=== PATIENT | male | born 1945 | race Caucasian/White ===

== ENCOUNTER 2016-11-01 11:46 | Emergency (ER) | payer OTHER ==
[~2016-11-01] VITALS: Ht 188 cm; Wt 130.7 kg
[2016-11-01 11:49] VITALS: TEMP 36.5; Ht 188 cm; Wt 130.7 kg
--- NOTE | 2016-11-01 12:23 | DIAGNOSTIC IMAGING REPORT ---
RIGHT HAND MIN 3 VIEWS ROUTINE HISTORY: 71 years-old Male Open FX Right COMPARISON: None available TECHNIQUE: 3 views of the right hand. FINDINGS: There is an acute comminuted displaced and angulated fracture of the distal diaphyseal portion second metacarpal. There is 5 mm lateral displacement with associated apex dorsal angulation of approximately 30 degrees. Considerable amount of associated soft tissue swelling is present. No additional acute fracture or dislocation is identified. 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 No definite radiopaque foreign body. IMPRESSION: 1. Acute mildly displaced and angulated fracture of the distal diaphyseal second metacarpal with moderate associated soft tissue swelling. 2. No opaque foreign body. 3. Multifocal degenerative changes as above. The above report was generated using voice recognition software. It may contain grammatical, syntax or spelling errors. Electronically signed by: Xu Moore M.D. 11/01/2016 12:21 PM Dictated Date/Time: 11/01/2016 12:19 PM
[2016-11-01] MEDS ORDERED: CEFAZOLIN SOD 1000MG/55 ML D5W IV STA (12:49)
[2016-11-01] MEDS ORDERED: METO50TA16 PO (12:50)
[2016-11-01] MEDS ORDERED: DOXA2TAB PO (12:50)
[2016-11-01] MEDS ORDERED: RIVA1TAB4 PO (12:50)
[2016-11-01] MEDS ORDERED: CLON1TAB3 PO (12:50)
[2016-11-01] MEDS ORDERED: LISI40TA PO (12:50)
[2016-11-01] MEDS ORDERED: XYLOCAINE 1%/SOD BICARB 20 ML VIAL INFIL ONE (13:00)
[2016-11-01] MEDS ORDERED: DIPHTHERIA/TETANUS/PERTUSSIS 0.5 ML SYR/VIAL IM. ONE (13:00)
[2016-11-01] MEDS ORDERED: ONDA4TAB46 PO (14:27)
[2016-11-01] MEDS ORDERED: CEPH500C PO (14:27)
[2016-11-01] MEDS ORDERED: HYDR-5688 PO (14:27)
[2016-11-01 14:34] VITALS: BP 190/82; PULSE 68; O2SAT 97
--- NOTE | 2016-11-01 18:20 | EMERGENCY ROOM VISIT NOTE ---
ED Visit Note First contact with patient: 12:42 Chief Complaint: Injured my right hand. History of Present Illness: Mr. Wolfe is a 71-year-old white male who ambulates into the ED accompanied by female friend complaining of posterior aspect of the right hand over the second metacarpal. Patient reports less than an hour ago he was putting a block under his pickup truck using a nadya. The nadya slipped and the truck came down and crushed his right hand. After removing the truck off his hand he did note there was bleeding over the posterior aspect of the hand and he noted moderate swelling. Currently he complains of a pressure and throbbing pain over the posterior aspect of the right hand. The prominence is located over the distal aspect of the second metacarpal. He rates his discomfort 5/10. His pain is nonradiating. His pain worsens with palpation, movement of the second MCP joint. He has not identified any alleviating factors related to the pain. He has not taken medications for pain prior to arrival at the hospital. He is [id number]-[id number] and denies any previous significant injuries or surgeries to the right hand. He denies any wrist pain, other hand pain, finger pain, finger weakness/numbness/tingling. Review of Systems: As noted above in history of present illness. Past Medical History: Hypertension. Current Medications: Xarelto, lisinopril, Cardura, Lopressor and Klonopin. Allergies to Medications: Patient denies. Social History: Patient is currently retired; he feels safe in his home environment; he denies tobacco use. Physical Examination: Vital Signs: Date Time Temp Pulse Resp B/P (MAP) Pulse Ox O2 Delivery O2 Flow Rate FiO2 11/01/16 14:34 68 20 190/82 97 Room Air 11/01/16 13:48 66 20 190/104 98 Room Air 11/01/16 11:49 36.5 62 18 205/96 97 Room Air GENERAL: 71-year-old male in mild distress due to pain, nontoxic-appearing, afebrile and hemodynamically stable. NEUROLOGICAL: Awake, alert and oriented to person, place and time. Answering questions appropriately and following commands. Normal gait. Good hand eye coordination. No focal motor sensory deficits. SKIN: Warm, dry and pink. Right Hand: 2.2 cm full-thickness laceration over the posterior hand over the distal aspect of the second metacarpal with moderate swelling. No active bleeding. RIGHT UPPER EXTREMITY: Soft tissue injury as noted above in SKIN. No gross bony deformity but moderate swelling over the posterior hand. No tenderness in the elbow, forearm or wrist. Moderate tenderness over the distal aspect of the second metacarpal with questionable bony crepitus and deformity. No tenderness throughout the rest of the hand or fingers. The fingers are warm and pink and capillary refill is brisk. Patient was able to wiggle his fingers and distinguish light sensations. ED Course: Patient is assessed as noted above. Patient's medication list was reviewed. Patient was offered pain medication and refused. Right Hand X-Rays: Were read by myself and the radiologist showing an acute mildly displaced and angulated comminuted fracture of the distal aspect of the distal second metacarpal. Moderately associated soft tissue swelling and not to multifocal degenerative changes. An IV lock was initiated and patient received 1 g of Ancef IV for antibiotic coverage and he was given an Adacel booster IM. Patient's case was consulted with Dr. Gonzalez, orthopedic hand specialist; he requested that the wound be thoroughly cleansed, loosely approximated, splinted and he would see the patient in follow-up tomorrow morning at 8 AM at his office. Wound Repair: Complexity: Basic Verbal consent was obtained after the risks and benefits were explained. The skin was prepped with betadine and a sterile field set. Wound edges of the wound was anesthetized with 3.2 ml buffered 1% lidocaine. The wound was explored for foreign bodies and none found. Copious irrigation was performed using sterile saline. With direct pressure the bleeding subsided. Debridement was not performed. The wound edges were approximated using 4-0 Ethilon with 2 simple interrupted sutures. Hemostasis and excellent approximation was achieved. Antibacterial ointment and a sterile dressing applied. Ortho-Glass splint was placed. No complications and the patient tolerated the procedure well. Patient was educated about today's findings and instructed on his treatment plan ; he verbalizes understanding and agreement with this plan. Clinical Impression: Open comminuted and displaced fracture of the distal aspect of the right second metacarpal. Disposition: Patient discharged home in stable condition accompanied by female friends; prior to departure he was reassessed and subjectively reported he was feeling better and rated his discomfort 2/10. Plan: Comfort measures, wound care and signs of infection were discussed with the patient. He was prescribed [place] for pain control and Zofran for nausea related to narcotic use; he was given appropriate narcotic precautions and his name was checked in the state database and no red flags were noted. Patient was prescribed Keflex for antibiotic coverage. Patient was encouraged to follow-up with hand specialist tomorrow morning at 8 AM. Patient was encouraged return ED before then for worsening/uncontrolled pain, any fevers, hand the hand weakness/numbness/tingling or any new/concerning symptoms.
== END 2016-11-01 14:35 | disposition home or self-care (01) ==
LOC: C.EDB 11:49 → C.EDD 14:35
DX: S62.390B Other fracture of second metacarpal bone, right hand, initial encounter for open fracture (principal); W23.1XXA Caught, crushed, jammed, or pinched between stationary objects, initial encounter; Y92.009 Unspecified place in unspecified non-institutional (private) residence as the place of occurrence of the external cause; I10 Essential (primary) hypertension; Z79.01 Long term (current) use of anticoagulants; Z79.899 Other long term (current) drug therapy

== ENCOUNTER → 2016-11-02 | Outpatient (CLI) | payer OTHER ==
[~2016-11-02] MED LIST: CEPH500C PO; CLON1TAB3 PO; DOXA2TAB PO; HYDR-5688 PO; LISI40TA PO; METO50TA16 PO; ONDA4TAB46 PO; RIVA1TAB4 PO
== END | disposition home or self-care (01) ==
LOC: C.CPL 10:48
PROVIDERS: ATTEND Orthopaedic Surgery
DX: Z01.810 Encounter for preprocedural cardiovascular examination (principal)

== ENCOUNTER 2024-08-27 11:22 | Observation (INO) ==
--- NOTE | 2024-08-27 11:58 | Emergency Department Note ---
Impression & Plan Cellulitis, Infection ED Provider Note CHIEF COMPLAINT: Leg swelling HISTORY OF PRESENTING ILLNESS: The patient is a pleasant 79-year-old male who arrives to the emergency department for evaluation of right lower extremity swelling and pain. Patient states he had a total knee replacement performed by Dr. Hoang on 08/19. He states since that time he has noted increasing swelling, with warmth and redness to the right lower extremity. He reports the area is painful even to slight touch. He states he is unsure if he had a fever, however noted rigors at home. He reports he is currently taking a daily baby aspirin due to his past medical history of 3 cardiac stents. He reports some shortness of breath, and states no past medical history of congestive heart failure. REVIEW OF SYSTEMS: See HPI for pertinent positives and pertinent negatives. ALLERGIES: See below MEDICATIONS: See below PAST MEDICAL HISTORY: See below PHYSICAL EXAM: VITALS: Vitals are noted on the nurse's note and reviewed by myself. Vital signs stable. GENERAL: 79-year-old male, in no acute distress, nondiaphoretic, well-developed well-nourished. SKIN: Right lower extremity 4+ pitting edema, with circumferential cellulitis noted from the upper tib-fib extending to the ankle. No drainage from incision site noted. HEAD: Normocephalic atraumatic. NECK: Supple without nuchal rigidity. No JVD. HEART: Regular rate and rhythm without murmurs gallops or rubs. LUNGS: Clear to auscultation bilaterally without wheezes, rales or rhonchi. No retractions or accessory muscle use. ABDOMEN: Positive bowel sounds x 4. Soft, nontender, without masses or organomegaly. Hinojosa sign negative. No guarding or rebound tenderness. MUSCULOSKELETAL: Right lower extremity pitting edema. Circumferential cellulitis, no weeping. DP pulse intact. Full ROM, right ankle. Sensation intact to dull and sharp. NEURO: Patient was alert and oriented to person place and time. No focal neurological deficits. DIFFERENTIAL DIAGNOSIS: Cellulitis, abscess, MRSA infection, DVT, necrotizing fasciitis, dermatitis, drug eruption, allergic reaction, CHF, infections, musculoskeletal, as well as other pathologies. ED COURSE AND MEDICAL DECISION MAKING: HISTORY FROM INDEPENDENT HISTORIAN: Family at bedside serving as secondary historian. MEDICATIONS GIVEN: Vancomycin 2750 mg, ceftriaxone 2000 mg, morphine 4 mg INTERPRETATION OF LABS: I interpreted the labs with full lab results as below in the lab section of this note. Pertinent lab results discussed in the MDM section below. INTERPRETATION OF IMAGING: Imaging studies were interpreted by myself and read by radiology as per the imaging section of this note. CONSULTATIONS: Case discussed with Dr. Hoang, from orthopedics. MDM SUMMARY: The patient is a pleasant, 79-year-old male who arrives to the emergency department for evaluation of the above-stated complaint. A saline lock was established, CBC, CMP, lactate, procalcitonin, blood cultures were obtained. CBC shows no leukocytosis, stable anemia. CMP shows no concerning findings. Lactate 2.3, with repeat 1.8. Chest x-ray imaging obtained per my interpretation shows no acute cardiopulmonary findings. Knee x-ray obtained which per my interpretation shows no complication of the hardware, no concerning findings. Venous Doppler ultrasound to rule out DVT was obtained which was negative. Based on the patient's elevated lactic acid, and physical examination findings I do believe the patient requires admission to the hospital for cellulitis, with potential systemic infection. He was provided IV vancomycin, and IV Rocephin. I spoke with Dr. Hoang from orthopedics, who will consult. The patient will be admitted to the [facility] hospitalist group for further patient workup and treatment. Please refer to Dr. Soria's documentation. DIAGNOSIS: Cellulitis, infection The patient's case was discussed with Dr. Duenas, who agreed with my evaluation and treatment plan. The chart was completed utilizing [employer] Speech voice recognition software. Grammatical errors, random word insertions, pronoun errors, and incomplete sentences are an occasional consequence of this system due to software limitations, ambient noise, and hardware issues. Any formal questions or concerns about the content, text, or information contained within the body of this dictation should be directly addressed to the provider for clarification. Past Med/Surg History Problem List (Updated 08/27/24 @ 15:49 by JEREMY Parikh) Infection (Acute) Cellulitis (Acute) Status post total right knee replacement Encounter for pre-operative examination Lumbar spondylosis Degenerative arthritis of knee, bilateral Medical History CAD (coronary artery disease) (~2021) s/p 3 stents Hx of lymphoma (2020) had chemo-follows Onc in [facility] Gennaro Toribio at [facility]- last seen 07/21/24 Irregular heart rhythm approx. 1 year ago, went to [place] [facility], states was having fast heart beat followed by "no heart beat"- was not admitted and "it went away on it's own"- states no longer has this problem HLD (hyperlipidemia) GERD (gastroesophageal reflux disease) controlled, stable per pt Lumbar spondylosis Hypertension controlled, stable per pt Surgical History History of wisdom tooth extraction (2019) 4 wisdom teeth Hx of arthroscopy of right knee (2004) torn meniscus Hx of heart artery stent 2021- stents- [facility]-- no NH- follows with cardio dr. gonzalez in [place] (last seen 07/21/24- had EKG) Hx of cardiac catheterization (2021) 2021- stents- [facility]-- no NH- follows with cardio dr. 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 Beliefs That Will Affect Care: None Current Living Situation: Spouse Feels Safe at Home: Yes Assistive Devices: Walker Allergies Allergies Allergy/AdvReac Type Severity Reaction Status Date / Time No Known Allergies Allergy Verified 08/27/24 14:09 Home Meds Home Medications Medication Instructions Recorded Confirmed atorvastatin 40 mg tablet (Lipitor) 40 mg PO HS 07/07/24 08/27/24 cholecalciferol (vitamin D3) 125 125 mcg PO QAM 07/07/24 08/27/24 mcg (5,000 unit) capsule doxazosin 2 mg tablet (Cardura) 2 mg PO HS 07/07/24 08/27/24 ijdamdtt-mmn- 250 mg-dha 90 1 cap PO QAM 07/07/24 08/27/24 mg-epa 160 ab-jcjp-nqva-zeax capsule (Ocuvite Adult 50 Plus) olflgdno-lt-ymrdr 300 mcg-K 60 1 tab PO QAM 07/07/24 08/27/24 mcg-lycop 600 mcg-lutein 300 mcg tablet (Centrum Silver Men) pantoprazole 20 mg tablet,delayed 20 mg PO QAM 07/07/24 08/27/24 release (Protonix) lisinopril 40 mg tablet 40 mg PO QAM 07/23/24 08/27/24 metoprolol tartrate 50 mg tablet 50 mg PO BID 07/23/24 08/27/24 ondansetron 4 mg disintegrating 4 mg PO Q8H PRN nausea 08/27/24 08/27/24 tablet Previous Rx's Medication Instructions Recorded acetaminophen 500 mg tablet 1,000 mg (2 x 500 mg) PO TID pain 08/17/24 (Tylenol Extra Strength) 30 days #180 tabs aspirin 81 mg tablet,delayed 81 mg PO BID 45 days #90 tabs 08/17/24 release (Bernadette Low Dose Aspirin) oxycodone 5 mg tablet 5 - 10 mg (1 - 2 x 5 mg) PO Q8H 08/17/24 PRN pain #40 tabs sennosides 8.6 mg tablet (Senokot) 8.6 mg PO BID prevent constipation 08/17/24 14 days #28 tabs Results & Data (ED) Vital Signs Vital Signs - 24 hr 08/27/24 11:36 08/27/24 11:59 08/27/24 13:35 Temperature 36.6 C Temperature Source Oral Pulse Rate 83 Pulse Rate [Right Finger] 85 80 Pulse Rhythm [Right Finger] Regular Regular Pulse Strength [Right Finger] Normal Normal Respiratory Rate 18 18 18 Respiratory Effort / Characteristics Non-Labored Spontaneous Non-Labored Non-Labored Respiratory Depth Normal Normal Normal Respiratory Pattern Regular Regular Blood Pressure 149/68 H Blood Pressure [Right Arm] 128/70 141/92 H Blood Pressure Mean 95 Blood Pressure Mean [Right Arm] 89 108 Blood Pressure Position [Right Arm] Lying Lying Pulse Oximetry 97 98 97 Oxygen Delivery Method Room Air Room Air Room Air Sepsis Recent Fever Within 48 Hours No Sepsis New/Unexplained Change in Mental Status No Sepsis Action Taken by Nursing No Action Required 08/27/24 13:57 08/27/24 15:00 Temperature 36.6 C Temperature Source Oral Pulse Rate Pulse Rate [Right Finger] 90 Pulse Rhythm [Right Finger] Pulse Strength [Right Finger] Respiratory Rate 18 Respiratory Effort / Characteristics Respiratory Depth Respiratory Pattern Blood Pressure Blood Pressure [Right Arm] 152/106 H Blood Pressure Mean Blood Pressure Mean [Right Arm] 121 Blood Pressure Position [Right Arm] Pulse Oximetry 96 Oxygen Delivery Method Room Air Sepsis Recent Fever Within 48 Hours Sepsis New/Unexplained Change in Mental Status Sepsis Action Taken by Long-Term Medications Current Medication List: was personally reviewed by me Laboratory Data Attestation: I reviewed the patient's lab results. 08/27/24 12:09 08/27/24 12:09 Lab Results 08/27/24 08/27/24 Range/Units 12:09 14:11 WBC 10.28 (4.8-10.8) K/ul RBC 3.28 L (4.70-6.10) M/uL Hgb 10.1 L (14.0-18.0) g/dl Hct 31.2 L (42.0-52.0) % MCV 95.1 (80.0-100.0) fL MCH 30.8 (25.0-34.0) pg MCHC 32.4 (32.0-36.0) g/dL RDW Std Deviation 47.1 H (36.4-46.3) fL RDW Coeff of Shanita 13.7 (11.5-14.5) % Plt Count 230 (130-400) K/uL MPV 9.3 L (9.4-12.4) fL Immature Gran % (Auto) 0.7 % Neut % (Auto) 79.6 % Lymph % (Auto) 8.2 % [place] % (Auto) 10.9 % Eos % (Auto) 0.2 % Baso % (Auto) 0.4 % Neut # (Auto) 8.19 H (1.40-6.50) K/uL Lymph # (Auto) 0.84 L (1.20-3.40) K/uL [place] # (Auto) 1.12 H (0.11-0.59) K/uL Eos # (Auto) 0.02 (0.00-0.50) K/uL Baso # (Auto) 0.04 (0.00-0.20) K/uL Immature Gran # (Auto) 0.07 (0.01-0.20) K/uL Sodium 141 (136-145) mmol/L Potassium 4.1 (3.5-5.1) mmol/L Chloride 108 H (98-107) mmol/L Carbon Dioxide 25 (21-32) mmol/L Anion Gap 8 (3-11) BUN 27 H (6-23) mg/dl Creatinine 1.08 (0.6-1.4) mg/dl Est Cr Clr Drug Dosing Not Reportable eGFR 70.24 BUN/Creatinine Ratio 25.0 H (10-20) Glucose 111 H (70-99(Fasting)) mg/dl Lactate 2.3 H* 1.8 (0.4-2.0) mmol/L Calcium 8.9 (8.6-10.3) mg/dl Total Bilirubin 1.8 H (0.2-1.0) mg/dl AST 24 (13-39) U/L ALT 34 (7-52) U/L Alkaline Phosphatase 56 (34-104) U/L Total Protein 6.5 (6.0-8.3) gm/dl Albumin 3.8 (3.4-5.0) gm/dl Globulin 2.7 (2.5-4.0) gm/dl Albumin/Globulin Ratio 1.4 (0.9-2) Procalcitonin 0.09 (0-0.5) ng/ml Administered Medications Discontinued Medications Vancomycin HCl 2,750 mg/ (Sodium Chloride) 555 mls @ 200 mls/hr IV NOW ONE Stop: 08/27/24 15:15 Last Admin: 08/27/24 13:55 Dose: 200 mls/hr Documented By: AVRIL Ceftriaxone Sodium (Rocephin) 2,000 mg in 50 mls @ 100 mls/hr IV NOW STA Stop: 08/27/24 13:15 Last Infusion: 08/27/24 13:49 Dose: Infused Documented By: Admin: 08/27/24 13:19 Dose: 100 mls/hr Documented By: VALDEZ Morphine Sulfate (Morphine Sulfate 4 Mg/Ml 1 Ml Carp\\Vial) 4 mg IV NOW STA Stop: 08/27/24 13:58 Last Admin: 08/27/24 14:02 Dose: 4 mg Documented By: VALDEZ Imaging Data Attestation: I personally reviewed and interpreted this imaging study as follows: Radiologist's Impression: Venous Doppler Study 08/27/24 11:57 US venous doppler LE RT HISTORY: r/o dvt COMPARISON: None TECHNIQUE: Multiple real-time sonographic images of the right lower extremity deep venous structures were obtained assessing grayscale appearance, color and spectral flow. FINDINGS: No evidence of DVT seen at the right lower extremity. IMPRESSION: No DVT seen. ACT 112: Negative or not required by law. The above report was generated using voice recognition software. It may contain grammatical, syntax or spelling errors. Electronically signed by: Chago Martin M.D. 08/27/2024 1:24 PM Chest X-Ray 08/27/24 12:04 XR chest 1V portable CLINICAL HISTORY: shob COMPARISON STUDY: 07/31/2024 FINDINGS: Inspiration is shallow which limits the exam. There is mild stranding in the lung bases. No other consolidation or pleural effusion. No pneumothorax. There is mild cardiomegaly without pulmonary vascular congestion. IMPRESSION: Atelectasis versus early pneumonia in the lung bases. ACT 112: Negative or not required by law. Electronically signed by: Chago Martin M.D. 08/27/2024 12:43 PM Knee X-Ray 08/27/24 12:04 XR knee RT 1 or 2V routine CLINICAL HISTORY: swelling COMPARISON: 08/19/2024 FINDINGS: Right knee prosthesis shows no hardware complication. No fracture or dislocation seen. Skin octavio remain anteriorly. Prior soft tissue gas has resolved. No evidence of osteomyelitis. IMPRESSION: No acute osseous finding seen. ACT 112: Negative or not required by law. Electronically signed by: Chago Martin M.D. 08/27/2024 1:19 PM Discharge Plan Visit Data Chief Complaint: Swelling/Edema to Extremity Stated Complaint: EDEMA RT LEG ED Provider: Mary Duenas ED Midlevel Provider: Stephanie Goode Discharge Problem: Cellulitis, Infection Condition: Fair Forms Stand Alone Forms: [facility] [employer] Prescriptions Prescriptions: No Action oxycodone 5 mg tablet 5 - 10 mg PO Q8H PRN (Reason: pain) Qty: 40 0RF Rx Instructions: Take as needed for pain. Do not take more than 6 tablets per day sennosides [Senokot] 8.6 mg tablet 8.6 mg PO BID 14 Days Qty: 28 0RF Rx Instructions: Take two times a day to prevent/treat constipation acetaminophen [Tylenol Extra Strength] 500 mg tablet 1,000 mg PO TID 30 Days Qty: 180 0RF Rx Instructions: Take 3 times per day to lessen pain. aspirin [Bernadette Low Dose Aspirin] 81 mg tablet,delayed release (DR/EC) 81 mg PO BID 45 Days Qty: 90 0RF Rx Instructions: Take to prevent blood clots. cholecalciferol (vitamin D3) 125 mcg (5,000 unit) capsule 125 mcg PO QAM Centrum Silver Men [id number] mcg tablet 1 tab PO QAM Ocuvite Adult 50 Plus 250 mg (90 mg-160 mg) capsule 1 cap PO QAM atorvastatin [Lipitor] 40 mg tablet 40 mg PO HS doxazosin [Cardura] 2 mg tablet 2 mg PO HS pantoprazole [Protonix] 20 mg tablet,delayed release (DR/EC) 20 mg PO QAM metoprolol tartrate 50 mg tablet 50 mg PO BID lisinopril 40 mg tablet 40 mg PO QAM ondansetron 4 mg tablet,disintegrating 4 mg PO Q8H PRN (Reason: nausea) Rx Instructions: Take as needed for nausea Referrals Referrals: Kelby Montelongo MD [Primary Care Provider] -
[2024-08-27 12:26] LABS: Basophils # (auto) 0.04 K/uL (0.00-0.20); Basophils % (auto) 0.4 %; Eosinophils # (auto) 0.02 K/uL (0.00-0.50); Eosinophils % (auto) 0.2 %; Hematocrit (blood only) 31.2 % (42.0-52.0); Hemoglobin 10.1 g/dl (14.0-18.0); Immature Granulocytes # (auto) 0.07 K/uL (0.01-0.20); Immature Granulocytes % (auto) 0.7 %; Lymphocytes # (auto) 0.84 K/uL (1.20-3.40); Lymphocytes % (auto) 8.2 %; Mean Corpuscular Hemoglobin 30.8 pg (25.0-34.0); Mean Corpuscular Hgb Conc 32.4 g/dL (32.0-36.0); Mean Corpuscular Volume 95.1 fL (80.0-100.0); Mean Platelet Volume 9.3 fL (9.4-12.4); Monocytes # (auto) 1.12 K/uL (0.11-0.59); Monocytes % (auto) 10.9 %; Neutrophils # (auto) 8.19 K/uL (1.40-6.50); Neutrophils % (auto) 79.6 %; Platelet Count 230 K/uL (130-400); RDW Coefficient of Variation 13.7 % (11.5-14.5); RDW Standard Deviation 47.1 fL (36.4-46.3); Red Blood Count 3.28 M/uL (4.70-6.10); White Blood Count 10.28 K/ul (4.8-10.8)
[2024-08-27 12:43] LABS: Alanine Aminotransferase 34 U/L (7-52); Albumin Globulin Ratio 1.4 (0.9-2); Alkaline Phosphatase 56 U/L (34-104); Anion Gap 8 (3-11); Aspartate Aminotransferase 24 U/L (13-39); Bilirubin,Total 1.8 mg/dl (0.2-1.0); Blood Urea Nitrogen 27 mg/dl (6-23); Calcium 8.9 mg/dl (8.6-10.3); Carbon Dioxide 25 mmol/L (21-32); Chloride 108 mmol/L (98-107); Globulin 2.7 gm/dl (2.5-4.0); Glucose 111 mg/dl (70-99(Fasting)); Potassium 4.1 mmol/L (3.5-5.1); Sodium 141 mmol/L (136-145); Total Protein 6.5 gm/dl (6.0-8.3)
--- NOTE | 2024-08-27 12:45 | XRay Report ---
XR chest 1V portable CLINICAL HISTORY: shob COMPARISON STUDY: 07/31/2024 FINDINGS: Inspiration is shallow which limits the exam. There is mild stranding in the lung bases. No other consolidation or pleural effusion. No pneumothorax. There is mild cardiomegaly without pulmona ry vascular congestion. IMPRESSION: Atelectasis versus early pneumonia in the lung bases. ACT 112: Negative or not required by law. Electronically signed by: Chago Martin M.D. 08/27/2024 12:43 PM
[2024-08-27] MEDS ORDERED: VANCOMYCIN CONSULT ACTIVE PRN ×2 (12:46→16:41)
[2024-08-27] MEDS: cefTRIAXone SODIUM 2,000 MG/50 ML BAG IV STA (13:19)
--- NOTE | 2024-08-27 13:20 | XRay Report ---
XR knee RT 1 or 2V routine CLINICAL HISTORY: swelling COMPARISON: 08/19/2024 FINDINGS: Right knee prosthesis shows no hardware complication. No fracture or dislocation seen. Ski n octavio remain anteriorly. Prior soft tissue gas has resolved. No evidence of osteomyelitis. IMPRESSION: No acute osseous finding seen. ACT 112: Negative or not required by law. Electronically signed by: Chago Martin M.D. 08/27/2024 1:19 PM
--- NOTE | 2024-08-27 13:25 | Ultrasound Report ---
US venous doppler LE RT HISTORY: r/o dvt COMPARISON: None TECHNIQUE: Multiple real-time sonographic images of the right lower extremity deep venous structures were obtained assessing grayscale appearance, color and spectral flow. FINDINGS: No evidence of DVT seen at the right lower extremity. IMPRESSION: No DVT seen. ACT 112: Negative or not required by law. The above report was generated using voice recognition software. It may contain grammatical, syntax o r spelling errors. Electronically signed by: Chago Martin M.D. 08/27/2024 1:24 PM
--- NOTE | 2024-08-27 13:29 | Emergency Department Note ---
ED Visit Note I was consulted by the Advanced Practice Provider, JEREMY Cook. I performed a substantive portion of the visit. This includes aspects of: History: Patient is a 79-year-old male presenting with right leg pain. Patient had a total right knee replacement on 08/20/2024. Patient reports that for the last few days he has been having significant pain, redness and swelling to the right lower leg. He reports he has had subjective fevers and chills at home. He is on a baby aspirin daily. He denies any chest pain or shortness of breath. MDM: - Laboratory workup interpreted by myself showed normal WBC; stable electrolytes; elevated lactic acid (2.3); normal procalcitonin - Blood cultures obtained - US LE negative for DVT - Patient's RLE is quite swollen and noted to have erythema overlying the lower anterior melgar that is warm to the touch. Erythematous region is tender to palpation. Significant concern for lower extremity cellulitis. - Orthopedics was consulted and they report that the patient could be discharged with oral Keflex if tolerated. However, significant concern for the patient's lower extremity at this point I do feel he would benefit from IV antibiotics and orthopedic consultation in the hospital. Will admit to the medicine service. .
[2024-08-27] MEDS: VANCOMYCIN HCL 2,750 MG in SODIUM CHLORIDE 0.9% 500 ML IV ONE (13:55)
[2024-08-27] MEDS: MoRPHine SULFATE 4 MG/ML 1 ML CARP\\VIAL IV STA (14:02)
--- NOTE | 2024-08-27 15:19 | History & Physical Report ---
Date of Service August 27, 2024 Assessment & Plan (1) Cellulitis: (2) Status post total right knee replacement: Plan This is a 79-year-old male with past medical history of lumbar spondylolysis and recent total right knee replacement who presented to the emergency department on 08/27/2024 for right lower extremity cellulitis. . While in the emergency department he did have a stable WBC of 10.28. His BMP was stable. His procalcitonin was negative at 0.09. He did have a right lower extremity Doppler that was negative for DVT. His chest x-ray was consistent with atelectasis. His right knee x-ray was negative for any acute findings. #Right leg cellulitis recent right total knee arthroplasty on 08/19 w/ Dr. Hoang given presence of rigors/chills at home - patient was admitted for IV antibiotics & further monitoring CBC w/o leukocytosis. BMP stable. procal negative blood cultures pending right knee XR negative right LE Doppler negative CXR negative s/p Rocephin/vancomycin in ED --> continue upon admission Scheduled Tylenol for pain w/ oxycodone for breakthrough pain Continue ASA BID for DVT prophylaxis Orthopedics consulted, appreciate recommendations. PT/OT consulted, appreciate recommendations #HLD - statin #HTN - Lisinopril, Metoprolol #GERD - PPI DVT prophylaxis: ASA BID (on outpatient for DVT prophylaxis per ortho) Code: full Case discussed w/ Dr. Billy at time of admission Updated niece at bedside 08/27. History of Present Illness Primary Care Provider: Kelby Montelongo This is a 79-year-old male with past medical history of lumbar spondylolysis and recent total right knee replacement who presented to the emergency department on 08/27/2024 for right lower extremity cellulitis. The patient was seen and examined this afternoon. Patient's niece was present at time of encounter. He reports that he has had chronic erythema of his right lower extremity. He states that he had a spider bite many years ago and feels that this leg has remained red ever since. However he has been working with home physical therapy and his physical therapist has noticed a significant change in his right lower leg. States that he was told to report to the ER yesterday at the recommendations. His knee operation was on 08/[address] Hoang. He does admit to feeling chills and rigors at home but denies a fever. States he has been on oxycodone and Tylenol [id number] so he is unsure whether he would have a fever or not. He denies any chest pain, shortness of breath, abdominal pain, nausea, vomiting. Denies any changes in his bowel habits. While in the emergency department he did have a stable WBC of 10.28. His BMP was stable. His procalcitonin was negative at 0.09. He did have a right lower extremity Doppler that was negative for DVT. His chest x-ray was consistent with atelectasis. His right knee x-ray was negative for any acute findings. Code discussion to take place with the patient and he does confirm that he is a full code Allergies Allergy/AdvReac Type Severity Reaction Status Date / Time No Known Allergies Allergy Verified 08/27/24 14:09 Home Medications Medication Instructions Recorded Confirmed Type atorvastatin 40 mg tablet (Lipitor) 40 mg PO HS 07/07/24 08/27/24 History cholecalciferol (vitamin D3) 125 125 mcg PO QAM 07/07/24 08/27/24 History mcg (5,000 unit) capsule doxazosin 2 mg tablet (Cardura) 2 mg PO HS 07/07/24 08/27/24 History fazdunws-lwo-kehuh4 250 mg-dha 90 1 cap PO QAM 07/07/24 08/27/24 History mg-epa 160 ie-eqym-nnqx-zeax capsule (Ocuvite Adult 50 Plus) xdzzrvje-gd-aejhl 300 mcg-K 60 1 tab PO QAM 07/07/24 08/27/24 History mcg-lycop 600 mcg-lutein 300 mcg tablet (Centrum Silver Men) pantoprazole 20 mg tablet,delayed 20 mg PO QAM 07/07/24 08/27/24 History release (Protonix) lisinopril 40 mg tablet 40 mg PO QAM 07/23/24 08/27/24 History metoprolol tartrate 50 mg tablet 50 mg PO BID 07/23/24 08/27/24 History acetaminophen 500 mg tablet 1,000 mg (2 x 500 mg) PO TID pain 08/17/24 08/27/24 Rx (Tylenol Extra Strength) 30 days #180 tabs aspirin 81 mg tablet,delayed 81 mg PO BID 45 days #90 tabs 08/17/24 08/27/24 Rx release (Bernadette Low Dose Aspirin) oxycodone 5 mg tablet 5 - 10 mg (1 - 2 x 5 mg) PO Q8H 08/17/24 08/27/24 Rx PRN pain #40 tabs sennosides 8.6 mg tablet (Senokot) 8.6 mg PO BID prevent constipation 08/17/24 08/27/24 Rx 14 days #28 tabs ondansetron 4 mg disintegrating 4 mg PO Q8H PRN nausea 08/27/24 08/27/24 History tablet Past Med/Surg History Problem List Infection (Acute) Cellulitis (Acute) Status post total right knee replacement Encounter for pre-operative examination Lumbar spondylosis Degenerative arthritis of knee, bilateral Medical History CAD (coronary artery disease) (~2021) s/p 3 stents Hx of lymphoma (2020) had chemo-follows Onc in [place]- Gennaro Toribio at [facility]- last seen 07/21/24 Irregular heart rhythm approx. 1 year ago, went to [place] ER, states was having fast heart beat followed by "no heart beat"- was not admitted and "it went away on it's own"- states no longer has this problem HLD (hyperlipidemia) GERD (gastroesophageal reflux disease) controlled, stable per pt Lumbar spondylosis Hypertension controlled, stable per pt Surgical History History of wisdom tooth extraction (2019) 4 wisdom teeth Hx of arthroscopy of right knee (2004) torn meniscus Hx of heart artery stent 2021- stents- [facility]-- no [place]- follows with cardio dr. gonzalez in [place] (last seen 07/21/24- had EKG) Hx of cardiac catheterization (2021) 2021- stents- [facility]-- no [place]- follows with cardio dr. gonzalez in [facility] (last seen 07/21/24- had EKG) Hx of inguinal hernia repair (2014) right side History of open reduction and internal fixation (ORIF) procedure (2020) right hand Social History Smoking Status: Never smoker Tobacco Type: Cigarettes Second Hand Exposure: No; Do You Dip or Chew Tobacco: No; Tobacco Cessation Education Requested by Patient: No Hx Alcohol Use: No Hx Substance Use: No Preferred Language: Polish Communication Ability: Effective Service Delivery Management Consultant Required: No Beliefs That Will Affect Care: None Current Living Situation: Alone Feels Safe at Home: Yes Safety Concerns: Feels Safe At This Time Assistive Devices: Glasses and Walker Physical Exam Physical Exam: General: no acute distress; non-toxic appearing; well-nourished; cooperative HEENT: normocephalic, atraumatic; no scleral icterus; PERRLA w/ EOMs intact; vision and hearing grossly intact Neck:trachea midline Skin: warm, dry without signs of tenting; no cyanosis; no rashes, bruising, lesions. erythema of RLE, warm to touch. Staple lines in tact over right knee w/o erythema. no drainage or wounds visualized. CV: RRR; S1/S2 normal; no murmurs/rubs/gallops Lungs: no acute respiratory distress; symmetrical chest wall expansion; clear breath sounds across all lung esparza w/o adventitious sounds; no wheezing ABD: Soft, NTP; BS present; no rebound/guarding; no distention MSK: mild edema in bl LE Neuro: A&Ox3; normal mood and affect; fluent speech; no focal deficits; sensation grossly intact in the LEs b/l Results & Data Results & Data Vital Signs (Past 12 Hours) Vital Signs Temp Pulse Pulse Resp BP BP Pulse Ox 08/27/24 13:57 36.6 C 08/27/24 13:35 80 18 141/92 H 97 08/27/24 11:59 85 18 128/70 98 08/27/24 11:36 36.6 C 83 18 149/68 H 97 O2 Del Method 08/27/24 13:57 08/27/24 13:35 Room Air 08/27/24 11:59 Room Air 08/27/24 11:36 Room Air Supervising Physician Co-Signing Physician Notes I personally saw and examined the patient. I independently reviewed the labs, EKG, imaging, problem list, medication list, past medical history and family history. I verified all santiago points and agree with Lucy Valenzuela PA-C with the following exceptions and/or additions: 79 year old male presents to the ER with right leg swelling and erythema following recent TKA O/E Right leg swelling and erythema with 2+ pitting edema A/P Right leg erythema and swelling - appearance is most consistent with venous insufficiency especially with normal WBC and procalcitonin, however concerningly having chills rigors at home will continue on antibiotics overnight and continue to measure his temperature. If afebrile overnight can consider stopping ant ibiotics after orthopedic review PG Care Time/CCT Total # of Minutes Spent Total Time Spent with Patient: Total time spent is greater than 50% in coordination of care (as documented) at patient's floor/unit and/or counseling patient: Coding Level of Care Code 89839 INT INP/OBS CARE 3MIN Diagnoses Cellulitis L03.90 Status post total right knee replacement Z96.651
[2024-08-27] MEDS ORDERED: oxyCODONE HCL IR 5 MG TAB (IMMEDIATE RELEASE) PO PRN (16:41)
[2024-08-27] MEDS ORDERED: ONDANSETRON 4 MG OD TAB PO PRN (16:41)
[2024-08-27] MEDS: oxyCODONE HCL IR 5 MG TAB (IMMEDIATE RELEASE) PO PRN (18:25)
[2024-08-27 19:47] VITALS: O2SAT 97
[2024-08-27] MEDS: ATORVASTATIN 40 MG TAB PO SCH (20:21)
[2024-08-27] MEDS: SENNA 8.6 MG TAB PO SCH (20:21)
[2024-08-27] MEDS: ACETAMINOPHEN 500 MG TAB PO SCH (20:21)
[2024-08-27] MEDS: METOPROLOL TARTRATE 50 MG TAB PO SCH (20:21)
[2024-08-27] MEDS: DOXAZosin MESYLATE TAB 2 MG TAB PO SCH (20:21)
[2024-08-27] MEDS: ASPIRIN 81 MG ECTAB PO SCH (20:22)
[2024-08-27 22:23] LABS: C Reactive Protein 12.59 mg/dl (0-0.5)
[2024-08-28] MEDS: VANCOMYCIN HCL 1,000 MG/270 ML BAG IV SCH (05:51)
[2024-08-28 07:45] VITALS: BP 164/90; PULSE 93; RESP 15; TEMP 98.8
[2024-08-28] MEDS: lisinopril 40 MG TAB PO SCH (07:47)
[2024-08-28] MEDS: CHOLECALCIFEROL 125 MCG (5,000 UNITS) TAB PO SCH (07:48)
[2024-08-28 08:57] LABS: Hematocrit (blood only) 27.6 % (42.0-52.0); Mean Corpuscular Hemoglobin 31.3 pg (25.0-34.0); Mean Corpuscular Hgb Conc 32.6 g/dL (32.0-36.0); Mean Corpuscular Volume 95.8 fL (80.0-100.0); Mean Platelet Volume 9.6 fL (9.4-12.4); Platelet Count 222 K/uL (130-400); RDW Coefficient of Variation 13.6 % (11.5-14.5); RDW Standard Deviation 47.7 fL (36.4-46.3); Red Blood Count 2.88 M/uL (4.70-6.10); White Blood Count 9.34 K/ul (4.8-10.8)
[2024-08-28 09:04] LABS: BUN Creatinine Ratio 28.2 (10-20); Potassium 4.2 mmol/L (3.5-5.1)
--- NOTE | 2024-08-28 09:12 | Orthopedic Consultation ---
Date of Service August 28, 2024 Assessment & Plan (1) Status post total right knee replacement: 79-year-old gentleman 9 days out from a right total knee replacement with chronic venous stasis changes with some increasing swelling redness and concern for cellulitis. This is not an uncommon scenario and he is probably at the point where the swelling is the worst. His leg is certainly red but I do not think this likely represents cellulitis and more likely just a exacerbation of his venous stasis changes which is to be expected. He is currently not wearing stockings which certainly do not help matters. He is afebrile. White cell count is normal. I do not think he is got clinical infection. It is always difficult to tell in the situation. The knee joint looks quite well. Plan: From an orthopedic standpoint this patient can be discharged on p.o. antibiotics. Once again is difficult to discern whether is any cellulitis or not but I think this most likely represents just a exacerbation of his venous stasis changes. Having said that with the redness it is appropriate to treat him with some p.o. antibiotics for the next 7 to 10 days. He should be following up in my clinic. He does need to wear his compression stockings and that is important to help prevent this type of problem. He needs to elevate his legs when he at home is much as possible. Continue fit physical therapy. He should be wearing his stockings as well as the use of aspirin twice a day for DVT prophylaxis. Any orthopedic questions can be ectomy [phone]. Discharge antibiotics would either recommend Keflex 5 mg 4 times a day for 7 to 10 days or cefoxitin [place] 500 mg twice a day for 7 to 10 days. History of Present Illness Reason for Consultation: . Right leg cellulitis after total knee replacement. Requesting Physician: . Attending Physician: Jasper Thompson . The patient is a 79-year-old gentleman now 9 days out from total knee replacement. He has had increasing right leg swelling and redness over the past several days. He has been seen home health and they have advised him to come to the hospital. He was admitted late last evening to the hospitalist service for apparent cellulitis. He also had an ultrasound done which was negative. He is got some moderate knee pain. There is been no drainage from the incision site. He is currently not wearing any his MAKI stockings. Allergies Allergy/AdvReac Type Severity Reaction Status Date / Time No Known Allergies Allergy Verified 08/27/24 14:09 Home Medications Medication Instructions Recorded Confirmed Type atorvastatin 40 mg tablet (Lipitor) 40 mg PO HS 07/07/24 08/27/24 History cholecalciferol (vitamin D3) 125 125 mcg PO QAM 07/07/24 08/27/24 History mcg (5,000 unit) capsule doxazosin 2 mg tablet (Cardura) 2 mg PO HS 07/07/24 08/27/24 History zkthvdpr-liw-jqojh2 250 mg-dha 90 1 cap PO QAM 07/07/24 08/27/24 History mg-epa 160 bc-qspg-jbmz-zeax capsule (Ocuvite Adult 50 Plus) qmayuktx-wl-lbrks 300 mcg-K 60 1 tab PO QAM 07/07/24 08/27/24 History mcg-lycop 600 mcg-lutein 300 mcg tablet (Centrum Silver Men) pantoprazole 20 mg tablet,delayed 20 mg PO QAM 07/07/24 08/27/24 History release (Protonix) lisinopril 40 mg tablet 40 mg PO QAM 07/23/24 08/27/24 History metoprolol tartrate 50 mg tablet 50 mg PO BID 07/23/24 08/27/24 History acetaminophen 500 mg tablet 1,000 mg (2 x 500 mg) PO TID pain 08/17/24 08/27/24 Rx (Tylenol Extra Strength) 30 days #180 tabs aspirin 81 mg tablet,delayed 81 mg PO BID 45 days #90 tabs 08/17/24 08/27/24 Rx release (Bernadette Low Dose Aspirin) oxycodone 5 mg tablet 5 - 10 mg (1 - 2 x 5 mg) PO Q8H 08/17/24 08/27/24 Rx PRN pain #40 tabs sennosides 8.6 mg tablet (Senokot) 8.6 mg PO BID prevent constipation 08/17/24 08/27/24 Rx 14 days #28 tabs ondansetron 4 mg disintegrating 4 mg PO Q8H PRN nausea 08/27/24 08/27/24 History tablet Past Med/Surg History Problem List Infection (Acute) Cellulitis (Acute) Status post total right knee replacement Encounter for pre-operative examination Lumbar spondylosis Degenerative arthritis of knee, bilateral Medical History CAD (coronary artery disease) (~2021) s/p 3 stents Hx of lymphoma (2020) had chemo-follows Onc in [place]- Gennaro Toribio at [facility]- last seen 07/21/24 Irregular heart rhythm approx. 1 year ago, went to [place] ER, states was having fast heart beat followed by "no heart beat"- was not admitted and "it went away on it's own"- states no longer has this problem HLD (hyperlipidemia) GERD (gastroesophageal reflux disease) controlled, stable per pt Lumbar spondylosis Hypertension controlled, stable per pt Surgical History History of wisdom tooth extraction (2019) 4 wisdom teeth Hx of arthroscopy of right knee (2004) torn meniscus Hx of heart artery stent 2021- 3 stents- [facility]-- [place]- follows with cardio dr. gonzalez in [place] (last seen 07/21/24- had EKG) Hx of cardiac catheterization (2021) 2021- 3 stents- [facility]-- no [place]- follows with cardio dr. gonzalez in [place] (last seen 07/21/24- had EKG) Hx of inguinal hernia repair (2014) right side History of open reduction and internal fixation (ORIF) procedure (2020) right hand Social History Smoking Status: Never smoker Tobacco Type: Cigarettes Second Hand Exposure: No; Do You Dip or Chew Tobacco: No; Tobacco Cessation Education Requested by Patient: No Hx Alcohol Use: No Hx Substance Use: No Preferred Language: Wolof Communication Ability: Effective Skull Grinder Required: No Beliefs That Will Affect Care: None Current Living Situation: Alone Feels Safe at Home: Yes Safety Concerns: Feels Safe At This Time Assistive Devices: Glasses and Walker Review of Systems All systems reviewed & are unremarkable except as noted in HPI & below. Physical Exam . Physical examination was a pleasant elderly male. He is lying in bed looks pretty comfortable. Examination of the right leg reveals incision to be healing nicely. Fairly mild to moderate swelling around the knee. He does have diffuse edema in his right leg from about a third of the calf down. Is got some moderate diffuse tenderness and some warmth. He does got chronic venous stasis changes on both legs and this is a worse on the right leg. They can dorsiflex and plantarflex his foot appropriately. He can do a straight leg raise. He is neurologically intact. Results & Data Results & Data Laboratory Results . White blood cell count is normal at 9.34. Diagnostic Findings . Ultrasound result was negative for DVT. PG Care Time/CCT Total # of Minutes Spent Total Time Spent with Patient: Total time spent is greater than 50% in coordination of care (as documented) at patient's floor/unit and/or counseling patient: Coding Level of Care Code None Diagnoses Status post total right knee replacement Z96.651
--- NOTE | 2024-08-28 10:57 | Discharge Summary ---
Discharge Summary Date of Service August 28, 2024 Principal Dx & Hospital Course #1 = Principal Diagnosis (1) Cellulitis: (2) Status post total right knee replacement: Plan This is a 79-year-old male with past medical history of lumbar spondylolysis and recent total right knee replacement who presented to the emergency department on 08/27/2024 for right lower extremity cellulitis. #Right leg cellulitis recent right total knee arthroplasty on 08/19 w/ Dr. Hoang given presence of rigors/chills at home - patient was admitted for IV antibiotics & further monitoring CBC w/o leukocytosis. BMP stable. procal negative blood cultures negative @ 24 hours right knee XR negative right LE Doppler negative CXR negative s/p Rocephin/Vanco MRSA swab negative Ortho consulted --> recommended Keflex x 7-10 days for treatment. difficult to discern between cellulitis vs venous stasis Recommend increasing compliance w/ angie hose stocking @ home. Scheduled Tylenol for pain w/ oxycodone for breakthrough pain Continue ASA BID for DVT prophylaxis PT/OT consulted - recommend continuing home health #HLD - statin #HTN - Lisinopril, Metoprolol #GERD - PPI Patient discharged home w/ continued home health services Admission HPI Per Admitting Provider This is a 79-year-old male with past medical history of lumbar spondylolysis and recent total right knee replacement who presented to the emergency department on 08/27/2024 for right lower extremity cellulitis. The patient was seen and examined this afternoon. Patient's niece was present at time of encounter. He reports that he has had chronic erythema of his right lower extremity. He states that he had a spider bite many years ago and feels that this leg has remained red ever since. However he has been working with home physical therapy and his physical therapist has noticed a significant guy ge in his right lower leg. States that he was told to report to the ER yesterday at the recommendations. His knee operation was on 08/[address] Hoang. He does admit to feeling chills and rigors at home but denies a fever. States he has been on oxycodone and Tylenol [id number] so he is unsure whether he would have a fever or not. He denies any chest pain, shortness of breath, abdominal pain, nausea, vomiting. Denies any changes in his bowel habits. While in the emergency department he did have a stable WBC of 10.28. His BMP was stable. His procalcitonin was negative at 0.09. He did have a right lower extremity Doppler that was negative for DVT. His chest x-ray was consistent with atelectasis. His right knee x-ray was negative for any acute findings. Code discussion to take place with the patient and he does confirm that he is a full code Discharge Exam General: no acute distress; non-toxic appearing; well-nourished; cooperative HEENT: normocephalic, atraumatic; no scleral icterus; PERRLA w/ EOMs intact; vision and hearing grossly intact Neck: trachea midline Skin: warm, dry without signs of tenting; no cyanosis; no rashes, bruising, lesions, improvement of erythema on RLE CV: chest wall NTP; RRR; S1/S2 normal; no murmurs/rubs/gallops; pulses intact and symmetric at radial, DP, and PT Lungs: no acute respiratory distress; symmetrical chest wall expansion Neuro: A&Ox3; normal mood and affect; fluent speech; no focal deficits; sensation grossly intact in the LEs b/l Discharge Plan Discharge Items Patient Disposition: Home - Home Health Services Reason For Visit: CELLULITIS Discharge Diagnosis: Cellulitis Condition on Discharge: Fair Activity: Resume your previous activity Non-emergency contact: Primary Care Provider and Surgeon Call non-emergency contact if: you have any medication questions, your symptoms worsen and you have a fever Follow-up/Referrals: Kelby Hoang MD [Physician] - Kelby Montelongo MD [Primary Care Provider] - (SPOKE WITH PATIENT; HE WILL MAKE HIS OWN HOSPITAL FOLLOW UP VISITS.) Diet: Regular Addtl Attending Provider Instructions: Mr. Wolfe, You were recently hospitalized for right lower extremity redness and tenderness. You were found to have a mild cellulitis and were treated with IV antibiotics. Your surgeon, Dr. Hoang evaluated you who recommended home on oral antibiotics. Please see recommendations below regarding your discharge. Please take Keflex 500mg four times daily for 10 days. Your next dose will be this afternoon 08/28. Please also take a daily probiotic while on this antibiotic. The remainder of your outpatient medications may be resumed. Please ensure you are wearing your angie hose stockings on a daily basis as this will help decrease the swelling in your legs. Please follow up with your surgeon. Please follow up with your PCP within 1-2 weeks of discharge. if you develop any fevers, chest pain, shortness of breath please report back to the ED for further evaluation. Best of luck! Lucy Valenzuela PA-C Pending Studies at Discharge: Yes Studies:: blood culture Stand-Alone Forms: [facility], Smoking Cessation Medications and DC Order Prescriptions: New cephalexin 500 mg capsule 500 mg PO QID 10 Days Qty: 40 0RF Probiotic 15 billion cell capsule, sprinkle 1 cap PO DAILY Qty: 10 0RF Rx Instructions: do not crush/chew/cut; swallow whole OR may open and sprinkle in cold drink/food Continued oxycodone 5 mg tablet 5 - 10 mg PO Q8H PRN (Reason: pain) Qty: 40 0RF Rx Instructions: Take as needed for pain. Do not take more than 6 tablets per day sennosides [Senokot] 8.6 mg tablet 8.6 mg PO BID 14 Days Qty: 28 0RF Rx Instructions: Take two times a day to prevent/treat constipation acetaminophen [Tylenol Extra Strength] 500 mg tablet 1,000 mg PO TID 30 Days Qty: 180 0RF Rx Instructions: Take 3 times per day to lessen pain. aspirin [Bernadette Low Dose Aspirin] 81 mg tablet,delayed release (DR/EC) 81 mg PO BID 45 Days Qty: 90 0RF Rx Instructions: Take to prevent blood clots. cholecalciferol (vitamin D3) 125 mcg (5,000 unit) capsule 125 mcg PO QAM Centrum Silver Men [phone] mcg tablet 1 tab PO QAM Ocuvite Adult 50 Plus 250 mg (90 mg-160 mg) capsule 1 cap PO QAM atorvastatin [Lipitor] 40 mg tablet 40 mg PO HS doxazosin [Cardura] 2 mg tablet 2 mg PO HS pantoprazole [Protonix] 20 mg tablet,delayed release (DR/EC) 20 mg PO QAM metoprolol tartrate 50 mg tablet 50 mg PO BID lisinopril 40 mg tablet 40 mg PO QAM ondansetron 4 mg tablet,disintegrating 4 mg PO Q8H PRN (Reason: nausea) Rx Instructions: Take as needed for nausea Discharge Orders: Discharge Order (Routine); Ordered 08/28/24 Ordered By: Lucy Montaño/Other Patient Handouts: Preventing Deep Vein Thrombosis Admission Data Admit Date/Time: 08/27/24 15:17 Attending Provider: Jasper Thompson Admit Provider: Tahir Billy Primary Care Provider: Kelby Montelongo Other Providers: Tahir Billy; Maxwell Chamberlain; Sheila Galvan; Portia De León; Margaret Rodriguez; Angélica Mejia; Barrett Garcia; Meliza Kaur; Lito Poole; Antonia Robles; Adrian Kaur; Kelby Hoang; Mayra Rosas; Mariajose Austin; Rome Richards; Chavez Drew; Karol Singh; Deonna Sotelo; Lexy Garvey; Martita Lo; Sharon Sofia; Maxwell Garcia; Chavez Hardin; Essie Garcia; Lynette Lam; [facility] Other Interventions: Discharge Summary Assessment (RN) Last Done: 08/28/24 11:14 Hospital Stay Data Consultations 08/27/24 13:56 ED Decision to Admit Stat 08/27/24 16:41 Consult Orthopedic Surgery Routine Diagnostic Imagining Performed 08/27/24 11:57 US venous doppler LE RT Stat Pending Results Patient Have Any Pending Studies at Discharge: Yes Discharge Instructions Given to Patient (Per Discharging Provider) Alejandro Rao were recently hospitalized for right lower extremity redness and tenderness. You were found to have a mild cellulitis and were treated with IV antibiotics. Your surgeon, Dr. Hoang evaluated you who recommended home on oral antibiotics. Please see recommendations below regarding your discharge. Please take Keflex 500mg four times daily for 10 days. Your next dose will be this afternoon 08/28. Please also take a daily probiotic while on this antibiotic. The remainder of your outpatient medications may be resumed. Please ensure you are wearing your angie hose stockings on a daily basis as this will help decrease the swelling in your legs. Please follow up with your surgeon. Please follow up with your PCP within 1-2 weeks of discharge. if you develop any fevers, chest pain, shortness of breath please report back to the ED for further evaluation. Best of luck! Lucy Valenzuela PA-C Total Time Total Time Spent Total Time Spent (In Minutes): 45 Total Time Includes: Examination of the Patient, Discharge Planning and Medication Reconciliation Coding Level of Care Code 49278 INP/OBS DISCH >30 MIN Diagnoses Cellulitis L03.90 Status post total right knee replacement Z96.651
[2024-08-28] MEDS: cephALEXin 500 MG CAP PO STA (11:13)
[2024-08-28] MEDS ORDERED: cefTRIAXone SODIUM 2,000 MG/50 ML BAG IV SCH (13:00)
== END 2024-08-28 13:25 | disposition home health service (06) ==
LOC: SUATTDRO → ED 11:22 → INTOOBSV 15:17 → SUATTDRO 15:17 → 3E 15:17